=== PATIENT | male | born 1965 | race Caucasian/White ===

== ENCOUNTER 2017-08-30 22:32 | Emergency (ER) | payer SELFPAY ==
--- NOTE | 2017-08-31 | EDPHYS ---
Physician Documentation [facility] Name: Shauna Hunter Jr Age: 51 yrs Sex: Male : 1965 Arrival Date: 08/30/2017 Time: 22:39 Bed 14 Private MD: Emerson Ramey R ED Physician Yousif Almanzar HPI: 08/30 23:23 This 51 yrs old Male presents to ER via Ambulatory with complaints of Fever, rn Body aches. 23:23 The patient reports fever, not measured (subjective). Onset: The symptoms/episode rn began/occurred 3 day(s) ago. Modifying factors: there are no obvious modifying factors. Associated signs and symptoms: Pertinent positives: chills, cough, myalgias, runny nose, sore throat. 23:24 Severity of symptoms: At their worst the symptoms were mild in the emergency department rn the symptoms are unchanged. The patient has not experienced similar symptoms in the past. The patient has not recently seen a physician. Reports fever/chills/sore throat/runny nose/muscle aches, began 3 days ago, smokes. Historical: - Allergies: 22:57 Codeine; ao - Home Meds: 22:57 None [Active]; ao - PMHx: 22:57 Hear murmmer; ao - PSHx: 22:57 hernia removal; ao - Immunization history:: Adult Immunizations not up to date. - Social history:: Smoking status: Patient uses tobacco products, smokes one pack cigarettes per day. Patient/guardian denies using alcohol, but has a distant history of alcohol abuse, street drugs, but used to use street drugs. - Family history:: not pertinent. - Hospitalizations: : No recent hospitalization is reported. 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 Exam: 23:24 Constitutional: This is a well developed, well nourished patient who is awake, alert, rn and in no acute distress. Head/Face: Normocephalic, atraumatic. Eyes: Pupils equal round and reactive to light, extra-ocular motions intact. Lids and lashes normal. Conjunctiva and sclera are non-icteric and not injected. Cornea within normal limits. Periorbital areas with no swelling, redness, or edema. ENT: Nares patent. No nasal discharge, no septal abnormalities noted. Tympanic membranes are normal and external auditory canals are clear. Oropharynx with no redness, swelling, or masses, exudates, or evidence of obstruction, uvula midline. Mucous membranes moist. Neck: Trachea midline, no thyromegaly or masses palpated, and no cervical lymphadenopathy. Supple, full range of motion without nuchal rigidity, or vertebral point tenderness. No Meningismus. Cardiovascular: Regular rate and rhythm with a normal S1 and S2. No gallops, murmurs, or rubs. Normal PMI, no JVD. No pulse deficits. Respiratory: Lungs have equal breath sounds bilaterally, clear to auscultation and percussion. No rales, rhonchi or wheezes noted. No increased work of breathing, no retractions or nasal flaring. Abdomen/GI: Soft, non-tender, with normal bowel sounds. No distension or tympany. No guarding or rebound. No evidence of tenderness throughout. Back: No spinal tenderness. No costovertebral tenderness. Full range of motion. MS/ Extremity: Pulses equal, no cyanosis. Neurovascular intact. Full, normal range of motion. Equal circumference. Neuro: Awake and alert, GCS 15, oriented to person, place, time, and situation. Cranial nerves II-XII grossly intact. Motor strength 5/5 in all extremities. Sensory grossly intact. Cerebellar exam normal. Normal gait. Vital Signs: 22:58 BP 108 / 63; Pulse 88; Resp 16; Temp 99.5(O); Pulse Ox 98% on R/A; Weight 76.2 kg (R); ao Height 5 ft. 9 in. (175.26 cm); Pain 9/10; 23:58 BP 119 / 63; Pulse 93; Resp 16; Temp 99.3(O); Pulse Ox 98% on R/A; bs1 22:58 Body Mass Index 24.81 (76.20 kg, 175.26 cm) ao MDM: 23:15 Patient medically screened. rn 23:59 Differential diagnosis: viral Infection, bacterial infection, URI, pneumonia. Data rn reviewed: vital signs, nurses notes, lab test result(s), radiologic studies, plain films, and as a result, I will discharge patient. Counseling: I had a detailed discussion with the patient and/or guardian regarding: the historical points, exam findings, and any diagnostic results supporting the discharge/admit diagnosis, lab results, radiology results, the need for outpatient follow up, to return to the emergency department if symptoms worsen or persist or if there are any questions or concerns that arise at home. Counseling: I had a detailed discussion with the patient and/or guardian regarding: smoking cessation. Special discussion: I discussed with the patient/guardian in detail that at this point there is no indication for admission to the hospital. It is understood, however, that if the symptoms persist or worsen the patient needs to return immediately for re-evaluation. 08/30 23:01 Order name: Flu; Complete Time: 23:28 ao 08/30 23:01 Order name: Strep; Complete Time: 23:28 ao 08/30 23:24 Order name: XRAY Chest Pa And Lat (2 Views) rn 08/30 23:37 Order name: Throat Culture EDMS Administered Medications: 08/31 00:08 Drug: Tamiflu 75 mg Route: PO; bs1 00:11 Follow up: Response: No adverse reaction bs1 Disposition: 08/30/17 23:59 Discharged to Home. Impression: Influenza due to other identified influenza virus. - Condition is Stable. - Discharge Instructions: Influenza, Adult. - Prescriptions for Tamiflu 75 mg Oral Capsule - take 1 capsule by ORAL route every 12 hours for 5 days; 10 capsule. - Medication Reconciliation Form, Thank You Letter, Antibiotic Education, Prescription Opioid Use form. - Work release form (08/31/17 00:25). mt - Follow up: Emerson Ramey MD; When: As needed; Reason: Recheck today's complaints, Re-evaluation by your physician. - Problem is new. - Symptoms have improved. Signatures: Dispatcher [employer] EDMS Yousif Almanzar MD MD rn Angus Durham RN RN ao Tamara Arnold RN RN bs1 Lesly Potter mt
--- NOTE | 2017-08-31 | ER ---
Nurse's Notes [facility] Name: Shauna Hunter Jr Age: 51 yrs Sex: Male : 1965 Arrival Date: 08/30/2017 Time: 22:39 Bed 14 Private MD: Emerson Ramey R Diagnosis: Influenza due to other identified influenza virus Presentation: 08/30 22:51 Presenting complaint: Patient states: Patient reports fever for the past 3 days with ao body aches and chill. Patient C/O dizziness and weakness. Patient denies nausea or vomiting. Patient also complains of a sore throat. Transition of care: patient was not received from another setting of care. Onset of symptoms was August 27, 2018. Care prior to arrival: None. 22:51 Method Of Arrival: Ambulatory ao 22:51 Acuity: DERIK 4 ao Triage Assessment: 22:58 General: Appears in no apparent distress. Behavior is cooperative. Pain: Complains of ao pain in Body aches. Historical: - Allergies: 22:57 Codeine; ao - Home Meds: 22:57 None [Active]; ao - PMHx: 22:57 Hear murmmer; ao - PSHx: 22:57 hernia removal; ao - Immunization history:: Adult Immunizations not up to date. - Social history:: Smoking status: Patient uses tobacco products, smokes one pack cigarettes per day. Patient/guardian denies using alcohol, but has a distant history of alcohol abuse, street drugs, but used to use street drugs. - Family history:: not pertinent. - Hospitalizations: : No recent hospitalization is reported. Screenin:28 Abuse screen: Denies threats or abuse. Denies injuries from another. Nutritional bs1 screening: No deficits noted. Tuberculosis screening: No symptoms or risk factors identified. Fall Risk None identified. Assessment: 23:09 General: Appears uncomfortable, ill, Behavior is calm, cooperative, appropriate for bs1 age, Reports chills for 2-3 days, fever for 2-3 days. Pain: Complains of pain in general body aches Pain radiates to right ear. Neuro: Level of Consciousness is awake, alert, obeys commands, Oriented to person, place, time, situation, Appropriate for age Bucket Chucker are equal bilaterally Moves all extremities. Gait is steady. Cardiovascular: Denies chest pain, Heart tones S1 S2 present Capillary refill < 3 seconds Patient's skin is warm and dry. Respiratory: Reports cough that is non-productive, Airway is patent Trachea midline Respiratory effort is even, unlabored, Respiratory pattern is regular, symmetrical, Breath sounds are diminished bilaterally. GI: Abdomen is flat, Bowel sounds present X 4 quads. Patient currently denies nausea, vomiting. : No deficits noted. No signs and/or symptoms were reported regarding the genitourinary system. EENT: Reports nasal congestion pain in right ear. Derm: No deficits noted. No signs and/or symptoms reported regarding the dermatologic system. Musculoskeletal: No deficits noted. No signs and/or symptoms reported regarding the musculoskeletal system. Circulation, motion, and sensation intact. Capillary refill < 3 seconds, Range of motion: intact in all extremities. 08/31 00:09 Reassessment: Patient appears in no apparent distress at this time. Patient and/or bs1 family updated on plan of care and expected duration. Pain level reassessed. Patient is alert, oriented x 3, equal unlabored respirations, skin warm/dry/pink. Patient states feeling better. Vital Signs: 08/30 22:58 BP 108 / 63; Pulse 88; Resp 16; Temp 99.5(O); Pulse Ox 98% on R/A; Weight 76.2 kg (R); ao Height 5 ft. 9 in. (175.26 cm); Pain 9/10; 23:58 BP 119 / 63; Pulse 93; Resp 16; Temp 99.3(O); Pulse Ox 98% on R/A; bs1 22:58 Body Mass Index 24.81 (76.20 kg, 175.26 cm) ao ED Course: 22:39 Patient arrived in ED. es 22:39 Emerson Ramey MD is Private Physician. es 22:56 Triage completed. ao 22:59 Tamara Arnold, KATHLEEN is Primary Nurse. bs1 23:00 Arm band placed on right wrist. Patient placed in waiting room, Patient notified of ao wait time. 23:15 Yousif Almanzar MD is Attending Physician. rn 23:29 Patient has correct armband on for positive identification. Bed in low position. Call bs1 light in reach. Side rails up X 1. 23:35 Patient moved to radiology via wheelchair. kc2 23:35 X-ray completed. Patient tolerated procedure well. kc2 23:36 XRAY Chest Pa And Lat (2 Views) In Process Unspecified. EDMS 23:59 Emerson Ramey MD is Referral Physician. rn 08/31 00:10 No provider procedures requiring assistance completed. Patient did not have IV access bs1 during this emergency room visit. Administered Medications: 00:08 Drug: Tamiflu 75 mg Route: PO; bs1 00:11 Follow up: Response: No adverse reaction bs1 Outcome: 08/30 23:59 Discharge ordered by MD. rn 08/31 00:10 Discharged to home ambulatory. bs1 Condition: stable Discharge instructions given to patient, Instructed on discharge instructions, follow up and referral plans. medication usage, Demonstrated understanding of instructions, follow-up care, medications, Prescriptions given X 1. 00:12 Patient left the ED. bs1 Addendum: 09/01/2017 13:50 Addendum: Radiology Result: Attempted to call patient to see if symptoms have improved, s s and has made plans to follow up with PCP due to possible pneumonia found on chest XRAY. Pt did not answer and inbox was full. Unable to leave VM. Signatures: Dispatcher [employer] EDObdulia Masters Roman, MD MD rn Smirch, Shelby, RN RN ss Ortiz, Alex RN RN Gretel Sauceda kc2 Tamara Arnold, RN RN bs1 Corrections: (The following items were deleted from the chart) 08/30 23:07 22:51 Presenting complaint: Patient states: Patient reports fever for the past 3 days ao with body aches and chill. Patient C/O dizziness and weakness. Patient denies nausea or vomiting ao 08/31 00:11 08/30 23:58 BP 119 / 63; Pulse 80bpm; Resp 16bpm; Pulse Ox 100% RA; Temp 99.3F Oral; bs1bs1
[2017-08-31] MEDS ORDERED: OSELTAMIVIR 75 MG CAP ONE (00:24)
--- NOTE | 2017-08-31 08:21 | RAD REPORT ---
EXAM DESCRIPTION: RAD - Chest Pa And Lat (2 Views) - 08/30/2017 11:38 pm CLINICAL HISTORY: Fever, chills, body aches. COMPARISON: 06/15/2009 FINDINGS: Mild interstitial prominence is present bilaterally suggesting interstitial pneumonia. No focal infiltrate typical of bacterial pneumonia is seen. The heart is normal in size. No displaced fr actures.
== END 2017-08-31 00:12 | disposition home or self-care (01) ==
LOC: ER 22:32
DX: J10.1 Influenza due to other identified influenza virus with other respiratory manifestations (principal); R01.1 Cardiac murmur, unspecified; F17.210 Nicotine dependence, cigarettes, uncomplicated; Z88.5 Allergy status to narcotic agent
CPT/HCPCS: 71046; 87070; 87081; 87804; 99283

== ENCOUNTER 2017-10-11 19:42 | Emergency (ER) | payer OTHER, SELFPAY ==
[2017-10-11 20:28] LABS: Absolute Lymphocytes (CBC) 2.6 K/uL (0.7-4.9); Absolute Monocytes 0.7 K/uL (0.1-1.3); Absolute Neutrophil 5.9 K/uL (1.8-8.0); Basophils % 1.1 % (0-1.3); Eosinophils % 2.7 % (0-4.4); Hematocrit 39.3 % (39.6-49.0); Lymphocytes % 26.9 % (15.3-44.8); MCH 30.8 pg (27.0-35.0); MCV 89.6 fL (80-100); MPV 8.4 fL (7.6-11.3); Monocytes % 7.8 % (3.3-12.3); RBC Red Blood Cell Count 4.39 M/uL (4.33-5.43)
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
[2017-10-11 20:34] LABS: Potassium 3.6 mEq/L (3.6-5.0)
[2017-10-11] MEDS ORDERED: IBUPROFEN 400 MG TAB ONE (20:36)
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
== END 2017-10-11 21:28 | disposition home or self-care (01) ==
LOC: ER 19:42
DX: S42.001A Fracture of unspecified part of right clavicle, initial encounter for closed fracture (principal); S22.41XA Multiple fractures of ribs, right side, initial encounter for closed fracture; V29.49XA Motorcycle driver injured in collision with other motor vehicles in traffic accident, initial encounter; F17.210 Nicotine dependence, cigarettes, uncomplicated; Z88.5 Allergy status to narcotic agent; Z88.6 Allergy status to analgesic agent
CPT/HCPCS: 36415; 70450; 71260; 72125; 74177; 80048; 85025; 86850; 86900; 86901; 99285; Q9967